=== PATIENT | male | born 1995 | race Caucasian/White ===

== ENCOUNTER 2017-04-07 18:26 | Inpatient (IN) | payer OTHER ==
[~2017-04-07 18:26] MED LIST: ISOVUE-370 76%-LOCM 1 ML ONE; Iopamidol 370 76% 50 ML VIAL FS ONE
[2017-04-07] MEDS ORDERED: Ketorolac Tromethamine 30 MG/ML VIAL ONE ×2 (19:07→22:14)
[2017-04-07 19:10] LABS: #Eosinphils 0.1 thou/uL (0.0-0.7); #Lymphocytes 0.5 thou/uL (1.20-3.40); #Monocytes 0.6 thou/uL (0.11-0.59); #Neutrophils 8.9 thou/uL (1.40-6.50); %Basophils 0.2 % (0.0-1.0); %Eosinophils 1.2 % (0.0-10.0); %Lymphocytes 5.3 % (21.0-51.0); %Monocytes 5.5 % (0.0-10.0); Hematocrit 53.1 % (42.0-52.0); Red Blood Cell (RBC) Count 5.61 mill/uL (4.70-6.10); White Blood Cell (WBC) Count 10.1 thou/uL (4.8-10.8)
[2017-04-07] MEDS ORDERED: Ondansetron HCl/PF 4 MG/2 ML Vial ONE ×2 (19:10→22:50)
[2017-04-07] MEDS ORDERED: Piperacillin/Tazobactam 4.5 GM VIAL ONE (19:11)
[2017-04-07] MEDS ORDERED: Sodium Chloride 0.9% 100 ML ONE ×2 (19:12)
[2017-04-07 19:30] LABS: Lactic Acid - Sepsis 4.8 mmol/L (0.5-2.2)
[2017-04-07 19:31] LABS: ALT (SGPT) 135 U/L (8-55); AST (SGOT) 61 U/L (5-34); Alkaline Phosphatase 91 U/L (40-150); Anion Gap 19 mmol/L (10-20); BUN (Urea Nitrogen) 9 mg/dL (8.9-20.6); Calc. Creatinine Clearance 0 mL/min (70-130); Calcium 9.8 mg/dL (7.8-10.44); Carbon Dioxide 23 mmol/L (22-29); Chloride 99 mmol/L (98-107); Estimated GFR-MDRD 81; Globulin 3.9 g/dL (2.4-3.5); Protein, Total 8.3 g/dL (6.0-8.3)
--- NOTE | 2017-04-07 20:12 | RAD ---
PORTABLE CHEST: 04/07/17 HISTORY: Fever. Heart size and mediastinum are within normal limits. The lungs are clear of infiltrates. There are n o significant bony findings. IMPRESSION: No active intrathoracic disease. POS: [facility]
[2017-04-07 21:46] LABS: Bilirubin Negative (Negative); Blood, Urine Negative (Negative); Glucose, Urine (Dipstick) Negative (Negative); Ketone, Urine Trace mg/dL (Negative); Nitrite Negative (Negative); Protein, Urine (Dipstick) 30 mg/dL (Neg-Trace)
[2017-04-07 21:48] LABS: Bacteria/HPF None Seen HPF (None Seen); Hyaline Casts/LPF 0-3 HYALINE CAST LPF (0-3 Hyaline); RBC/HPF 0-3 HPF (0-3); Squamous Epithelial 0-3 HPF (0-3); WBC/HPF 0-3 HPF (0-3)
[2017-04-07] MEDS ORDERED: Lidocaine 2% w/Epinephrine 1:200K 20 ML VIAL ONE (22:21)
[2017-04-07] MEDS ORDERED: Bupivacaine 0.25% HCL 30 ML VIAL ONE (22:21)
[2017-04-07] MEDS ORDERED: Fentanyl 100 MCG/2 ML VIAL ONE (22:23)
[2017-04-07] MEDS ORDERED: Acetaminophen 1,000 MG in Premix Bag 1 BAG IVPB SCH (22:45)
[2017-04-07] MEDS ORDERED: Succinylcholine Chloride 20 MG/ML 10 ml SYRINGE FS ONE (22:50)
[2017-04-07] MEDS ORDERED: Lidocaine 1% PF 5 ML VIAL ONE (22:50)
[2017-04-07] MEDS ORDERED: Propofol 200 MG/20 ML VIAL ONE ×2 (22:50)
[2017-04-07] MEDS ORDERED: Glycopyrrolate 0.2 MG/ML 5 ML SYRINGE ONE (22:50)
--- NOTE | 2017-04-07 23:20 | CT ---
CT OF ABDOMEN AND PELVIS PERFORMED WITH INTRAVENOUS CONTRAST ENHANCEMENT: 04/07/17 HISTORY: Right lower quadrant pain. The lung bases are clear. There are fatty changes of the liver which measures 21 cm in length. The s pleen is within normal limits of size. Pancreas and gallbladder regions are unremarkable. Right and left adrenal glands and right and left kidneys are normal in size. There is no significant periaortic adenopathy. CT OF PELVIS PERFORMED WITH CONTRAST ENHANCEMENT: Appendix is enlarged with periappendiceal inflammatory change. No abscess. No free fluid in the pelv is. IMPRESSION: 1. CT findings compatible with appendicitis. 2. Fatty changes of the liver which is borderline enlarged. POS: [facility]
[2017-04-08] MEDS ORDERED: Morphine 2 MG/ML SYRINGE ONE (00:24)
[2017-04-08] MEDS ORDERED: Promethazine HCl 25 MG/ML VIAL SLOW IVP PRN (00:44)
[2017-04-08] MEDS ORDERED: Promethazine HCl 25 MG/ML VIAL IM PRN ×2 (00:44→01:20)
[2017-04-08] MEDS ORDERED: Ondansetron HCl/PF 4 MG/2 ML Vial IVP PRN ×2 (00:44→01:19)
[2017-04-08] MEDS ORDERED: Fentanyl 100 MCG/2 ML VIAL ONE (00:45)
[2017-04-08] MEDS ORDERED: Morphine 2 MG/ML SYRINGE SLOW IVP PRN ×2 (01:16→01:17)
[2017-04-08] MEDS ORDERED: HYDROcodone/Acetaminophen 7.5/325 mg Tablet PO PRN (01:18)
[2017-04-08] MEDS ORDERED: Promethazine HCl 25 MG in Sodium Chloride 0.9% 50 ML IVPB PRN (01:20)
--- NOTE | 2017-04-08 01:57 | HP ---
CHIEF COMPLAINT: Abdominal pain. HISTORY: Mr. Davey is a 21-year-old man, who developed abdominal pain yesterday morning, at first was diffuse and he thought he just had a stomach bug. He was running some fevers and nauseated, bu t not vomiting. The pain got worse today and started to localize to the right lower quadrant, so he went to his primary care doctor, who sent him to the ER with suspicion of appendicitis. This was c onfirmed in the ER by CT scan. He has had fevers up to 103 in the emergency room. PAST MEDICAL HISTORY: None. PAST SURGICAL HISTORY: None. FAMILY HISTORY: None. ALLERGIES: No known drug allergies. MEDICATIONS: No outpatient medications. He has been taking Tylenol and Advil for the past day or s o as needed. REVIEW OF SYSTEMS: Ten system review of systems is negative except per HPI. PHYSICAL EXAMINATION: GENERAL: Febrile to 103. VITAL SIGNS: Otherwise, normal. HEENT: Unremarkable. NECK: Soft and without lymphadenopathy or thyroid nodules. HEART: Regular in its rate and rhythm without murmurs, rubs, or gallops. LUNGS: Clear to auscultation bilaterally. He does not have any pain with deep inspiration. ABDOMEN: Soft, slightly distended, and very tender to palpation in the right lower quadrant. He do es not have any rigidity or rebound, or guarding, however. No palpable masses or hernias. EXTREMITIES: Warm and well perfused without edema. NEUROLOGIC: No focal deficits. PSYCHIATRIC: Alert, oriented, and appropriate. LABORATORY: White count is elevated. Others labs are unremarkable. CT images are reviewed and I a gree with the written report. The appendix is dilated with periappendiceal stranding. No evidence of abscess is seen. ASSESSMENT: Acute appendicitis. PLAN: Laparoscopic appendectomy. The patient's diagnosis and recommended treatment were discussed with him in detail. He understands and agrees with the plan. The inherent risks of surgery were al so discussed. These include but are not limited to bleeding, infection, risks of anesthesia, damage to nearby structures including bowel and blood vessels, need for other operations or for open surge ry. He understands and accepts these risks and wishes to proceed. He has received antibiotics in [facility] emergency room and has been posted for the operating room. All of his questions were answered.
[2017-04-08] MEDS: HYDROcodone/Acetaminophen 7.5/325 mg Tablet PO PRN ×4 (02:56→20:22)
[2017-04-08] MEDS: D5 1/2 NS w/20 mEq KCL 1,000 ML IV SCH ×3 (03:31→16:22)
[2017-04-08 03:46] LABS: Anion Gap 10 mmol/L (10-20); BUN (Urea Nitrogen) 8 mg/dL (8.9-20.6); Calc. Creatinine Clearance 0 mL/min (70-130); Calcium 8.3 mg/dL (7.8-10.44); Carbon Dioxide 26 mmol/L (22-29); Chloride 103 mmol/L (98-107); Estimated GFR-MDRD 81
[2017-04-08 04:02] LABS: Band 13 % (5-11); Hematocrit 45.6 % (42.0-52.0); Mean Platelet Volume 6.6 fL (7.4-10.4); Neutrophil 66 % (42-75); Red Blood Cell (RBC) Count 4.82 mill/uL (4.70-6.10); White Blood Cell (WBC) Count 7.1 thou/uL (4.8-10.8)
[2017-04-08 04:55] VITALS: BMI 34.1
[2017-04-08] MEDS: Piperacillin/Tazobactam 3.375 GM, Admixture Fee 1 EACH in Sodium Chloride 0.9% 100 ML IVPB SCH ×4 (05:14→23:35)
[2017-04-08] MEDS: Ibuprofen 800 MG TAB PO PRN ×2 (05:43→23:34)
[2017-04-08] MEDS: Morphine 2 MG/ML SYRINGE SLOW IVP PRN ×2 (06:32→11:30)
[2017-04-08] MEDS: Enoxaparin Sodium 40 MG/0.4 ML SYRINGE SC SCH (09:01)
[2017-04-08] MEDS: Famotidine/PF 20 mg/2ml Vial SLOW IVP SCH ×2 (09:01→20:22)
--- NOTE | 2017-04-08 20:51 | PDOC.OP ---
Operative Note - Operative Note Operative Note: PROCEDURE: Laparoscopic appendectomy SURGEON: Chun Abreu M.D. HANDLE ASSEMBLER: Jozef Rodriguez, MS 3 DATE OF PROCEDURE: 04/07/2017 PREOPERATIVE DIAGNOSIS: Appendicitis POSTOPERATIVE DIAGNOSIS: Appendicitis, perforated with periappendiceal abscess and extensive periappendiceal phlegmon HISTORY: Patient with 2 day history of abdominal pain with high fevers. The pain was diffuse at first and then localized to the right flank. CT showed appendicitis and recommendation was made to proceed with laparoscopic appendectomy. FINDINGS: Perforated retrocecal appendicitis with periappendiceal abscess and extensive periappendiceal phlegmon DESCRIPTION OF PROCEDURE: After informed consent was obtained and appropriate antibiotics continued, the patient was taken to the operating room and placed in the supine position and general endotracheal anesthesia was administered. The bladder was decompressed with a Gonzalez catheter and the abdomen was prepped and draped in the standard sterile fashion. Local anesthesia was infused to the skin and subcutaneous tissues superior to the umbilicus. A transverse skin incision was made and a Veress needle placed into the abdominal cavity and carbon dioxide gas insufflated without difficulty. Opening pressure was less than 5. Carbon dioxide gas was insufflated to an intra-abdominal pressure 15 and the patient tolerated this well. The Veress needle was withdrawn and a Roslyn port advanced under direct laparoscopic vision into the abdominal cavity. Two additional ports were placed in the suprapubic and left lateral abdomen under direct laparoscopic vision after local anesthesia was infused at these sites. The appendix was not immediately visible but there was some inflamed appearing fatty tissue lateral to the cecum which was felt to likely be periappendiceal fat. The cecum and the adjacent fatty tissue were mobilized medially but the appendix was not able to be identified within the fatty tissue. The base of the appendix was identified but the remainder of the appendix appeared to be curving behind the cecum. No plane was able to be clearly identified between the cecum and the appendix so the decision was made to dissect out the appendix from the base to the tip. The base was dissected free circumferentially and a window created through the mesial appendix. A laparoscopic stapler was placed across the base of the appendix and fired, dividing the base of the appendix. The base did appear normal. Dissection was then carried out through the inflamed fatty tissues staying close to the wall of the appendix to avoid injury to the cecum. As this process was carried out periappendiceal abscess was encountered and drained. The pus was sent for Gram stain and culture. Using meticulous and painstaking dissection, the appendix was able to be dissected out of the surrounding phlegmon all the way to the tip , dividing the mesoappendix with LigaSure as it was dissected out. The appendix was placed into an EndoCatch bag and drawn out through the suprapubic incision. The suprapubic trocar was then replaced and the operative site was easily irrigated to clear. A ANJANA drain was placed through the suprapubic trocar and drawn out through the left lower quadrant skin incision. This was secured to the skin with a drain suture and the ANJANA drain placed down into the pelvis with the tip up in the retrocecal appendiceal bed. The suprapubic trocar was removed and the fascia closed under direct laparoscopic vision with a 0 Vicryl suture on a GraNee needle with excellent technical result. Carbon dioxide gas was desufflated through the umbilical trocar which was then removed. The skin incisions were irrigated and additional local anesthesia infused at each site. The skin was closed with 4-0 subcuticular Monocryl sutures and Dermabond dressings were placed. Drain sponge and Tegaderm were placed at the ANJANA exit site. The patient was extubated and taken to the recovery room in good condition. Estimated blood loss was minimal. There were no complications. SPECIMEN: Appendix for pathology and periappendiceal pus for Gram stain and culture.
[2017-04-09] MEDS: D5 1/2 NS w/20 mEq KCL 1,000 ML IV SCH ×3 (02:41→17:45)
[2017-04-09 05:43] LABS: #Eosinphils 0.2 thou/uL (0.0-0.7); #Lymphocytes 0.9 thou/uL (1.20-3.40); #Monocytes 0.4 thou/uL (0.11-0.59); #Neutrophils 4.4 thou/uL (1.40-6.50); %Basophils 0.3 % (0.0-1.0); %Eosinophils 3.8 % (0.0-10.0); %Lymphocytes 15.1 % (21.0-51.0); %Monocytes 7.1 % (0.0-10.0); Hematocrit 40.7 % (42.0-52.0); Mean Platelet Volume 7.3 fL (7.4-10.4); White Blood Cell (WBC) Count 5.9 thou/uL (4.8-10.8)
[2017-04-09 05:44] LABS: Anion Gap 8 mmol/L (10-20); BUN (Urea Nitrogen) 4 mg/dL (8.9-20.6); Calc. Creatinine Clearance 165 mL/min (70-130); Calcium 8.7 mg/dL (7.8-10.44); Carbon Dioxide 27 mmol/L (22-29); Chloride 106 mmol/L (98-107); Estimated GFR-MDRD 84
[2017-04-09] MEDS: Piperacillin/Tazobactam 3.375 GM, Admixture Fee 1 EACH in Sodium Chloride 0.9% 100 ML IVPB SCH ×3 (06:06→17:44)
[2017-04-09] MEDS: Famotidine/PF 20 mg/2ml Vial SLOW IVP SCH ×2 (08:17→20:44)
[2017-04-09] MEDS: Enoxaparin Sodium 40 MG/0.4 ML SYRINGE SC SCH (08:18)
[2017-04-09] MEDS: Ibuprofen 800 MG TAB PO PRN (08:18)
[2017-04-09] MEDS: HYDROcodone/Acetaminophen 7.5/325 mg Tablet PO PRN ×3 (09:09→19:09)
--- NOTE | 2017-04-09 23:57 | PRG ---
DATE OF SERVICE: 04/09/2017 SUBJECTIVE: Mr. Davey is feeling better today. He still sore in the lower abdomen. He has not h ad any high fevers; however, and is eating without any problems. He is still a little gassy and dis tended, but is passing gas and ambulating frequently. He did have a high fever last night, but none today and his white count is normal. His abdomen is soft, slightly tympanitic and distended and st ill tender to palpation in the right greater than left lower quadrant. His incisions are healing we ll and his ANJANA output is serosanguineous. ASSESSMENT AND PLAN: Perforated appendicitis. Continue antibiotics. The patient had some urinary retention postoperatively requiring placement of the Gonzalez catheter, but we are going to try to get this out again today. If he has any problems voiding after removal of the catheter, I will get a Ur ology consult.
[2017-04-10] MEDS: Piperacillin/Tazobactam 3.375 GM, Admixture Fee 1 EACH in Sodium Chloride 0.9% 100 ML IVPB SCH ×4 (00:14→18:37)
[2017-04-10] MEDS: HYDROcodone/Acetaminophen 7.5/325 mg Tablet PO PRN ×5 (00:26→21:13)
[2017-04-10] MEDS: D5 1/2 NS w/20 mEq KCL 1,000 ML IV SCH ×3 (03:35→21:23)
[2017-04-10] MEDS: Famotidine/PF 20 mg/2ml Vial SLOW IVP SCH ×2 (08:16→21:12)
[2017-04-10] MEDS: Enoxaparin Sodium 40 MG/0.4 ML SYRINGE SC SCH (09:00)
--- NOTE | 2017-04-10 12:49 | PQF ---
DATE: 04-10-17 ATTN : DR. MICHA REYES Please exercise your independent, professional judgment in responding to the clarification form. Clinical indicators are provided on the bottom of this form for your review Please check appropriate box(s) to clarify if the following diagnosis has been ruled in our ruled out: SEPSIS (CDI/Coding list diagnosis here) [ ] Ruled in diagnosis [ ] Continue to treat [ ] Resolved [ ] Ruled out diagnosis [ ] Other diagnosis [ ] Unable to determine In addition, please specify: Present on Admission (POA): [ ] Yes [ ] No [ ] Unable to determine For continuity of documentation, please document condition throughout progress notes and discharge summary. Thank You. CLINICAL INDICATORS - SIGNS / SYMPTOMS / LABS ER DOCUMENTATION: ACUTE APPENDICITIS, SEPSIS BANDS: 04-08-17: 13 LACTIC ACID: 04-07-17: 4.8 TEMP: 04-08-17: 102.3, 101.6, 102.8, 100.3 04-09-17: 103 PULSE: 04-08-17: 110, 124, 118, 04-09-17: 116 RR: 04-09-17: 24 RISK FACTORS: OP NOTE 04-07-17: APPENDICITIS, PERFORATED WITH PERIAPPENDICEAL ABSCESS AND EXTENSIVE PERIAPPENDICEAL PHLEGMON TREATMENTS: ZOSYN ( 04-08-17) IVF ( 04-08-17) THANK YOU! (This form is maintained as a part of the permanent medical record) 2014 [employer] All Rights Reserved NÉSTOR [email or web address] Office: [phone] [facility] HOSPITALArnulfo
--- NOTE | 2017-04-10 23:00 | PRG ---
DATE OF SERVICE: 04/10/2017 Mr. Davey is feeling fine today. He has not had any fevers. He is having some pain at the drain sites, but his other abdominal pain has improved. He is urinating without problems following remova l of his Gonzalez catheter and he has had bowel movements. Abdomen is soft, slightly distended. Incis ions are clean and ANJANA drainage is serous. He does have bowel sounds. ASSESSMENT: Perforated appendicitis, status post appendectomy and drainage of periappendiceal absce ss, drain output is serous and his white count is normal. He was having high fevers at nights, but did not have any last night and he does not have any tonight. I will plan to discharge him home. H is cultures are growing E. coli and group C strep, but sensitivities are still pending.
[2017-04-11] MEDS: D5 1/2 NS w/20 mEq KCL 1,000 ML IV SCH (00:17)
[2017-04-11] MEDS: Piperacillin/Tazobactam 3.375 GM, Admixture Fee 1 EACH in Sodium Chloride 0.9% 100 ML IVPB SCH ×2 (00:20→06:10)
[2017-04-11] MEDS: HYDROcodone/Acetaminophen 7.5/325 mg Tablet PO PRN ×2 (04:05→10:04)
[2017-04-11 07:07] LABS: #Eosinphils 0.4 thou/uL (0.0-0.7); #Lymphocytes 1.5 thou/uL (1.20-3.40); #Monocytes 0.7 thou/uL (0.11-0.59); #Neutrophils 4.9 thou/uL (1.40-6.50); %Basophils 0.4 % (0.0-1.0); %Eosinophils 4.7 % (0.0-10.0); %Lymphocytes 19.5 % (21.0-51.0); %Monocytes 9.8 % (0.0-10.0); Hematocrit 41.5 % (42.0-52.0); Red Blood Cell (RBC) Count 4.44 mill/uL (4.70-6.10); White Blood Cell (WBC) Count 7.5 thou/uL (4.8-10.8)
[2017-04-11 07:26] LABS: Anion Gap 13 mmol/L (10-20); BUN (Urea Nitrogen) 7 mg/dL (8.9-20.6); Calc. Creatinine Clearance 198 mL/min (70-130); Calcium 9.4 mg/dL (7.8-10.44); Carbon Dioxide 21 mmol/L (22-29); Chloride 105 mmol/L (98-107); Estimated GFR-MDRD Greater than 90
[2017-04-11 08:09] VITALS: BP 131/90; TEMP 98.5
[2017-04-11] MEDS: Famotidine/PF 20 mg/2ml Vial SLOW IVP SCH (09:42)
[2017-04-11] MEDS: Enoxaparin Sodium 40 MG/0.4 ML SYRINGE SC SCH ×2 (09:42→10:43)
== END 2017-04-11 10:30 | disposition home or self-care (01) | DRG 340 ==
LOC: ERS 18:26 → SDC/OP 23:00 → SURG B 04-08 01:33 → SURG A 04-10 15:43 → SURG B 04-10 15:46
PROVIDERS: ADMIT Surgery; ATTEND Surgery
PROC: 0DTJ4ZZ Resection of Appendix, Percutaneous Endoscopic Approach (ICD-10-PCS; principal; 2017-04-08)
DX: K35.3 Acute appendicitis with localized peritonitis (principal); R33.9 Retention of urine, unspecified
CPT/HCPCS: 36415; 71010; 74177; 80048; 80053; 81003; 81015; 83605; 85025; 87040; 87070; 87077; 87086; 87186; 87205; 88304; 96361; 96365; 96375; 96376; J0131; J1650; J1885; J2001; J2270; J2405; J2543; J2704; J3010; J7050; S0020; S0028